=== PATIENT | female | born 1985 | race Hispanic/Latino ===

== ENCOUNTER → 2022-08-02 | Outpatient (CLI) | payer BC | END | disposition home or self-care (01) | LOC: RAH 10:39 | PROVIDERS: ATTEND Internal Medicine Gastroenterology | DX: R13.10 Dysphagia, unspecified (principal); R11.0 Nausea; R68.81 Early satiety | CPT/HCPCS: 78264; A9541 ==

== ENCOUNTER 2025-02-28 09:43 | Emergency (ER) | payer OTHER, BC ==
[~2025-02-28] VITALS: Ht 165.1 cm; Wt 145.1 kg
--- NOTE | 2025-02-28 09:50 | NUR ---
C COLAR REMOVED PER DR BRAUN
[2025-02-28] MEDS: HYDROcodone/APAP 5/325 1 TAB TABLET PO ONE (10:38)
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
--- NOTE | 2025-02-28 12:23 | HMCIMG ---
EXAM: CR left Shoulder, 2 View. CLINICAL HISTORY: Shoulder pain COMPARISON: None provided. FINDINGS: BONES: No acute fracture or aggressive appearing osseous lesion. JOINTS: No dislocation. Mild left acromioclavicular joint osteoarthritis. SOFT TISSUES: The soft tissues are unremarkable. IMPRESSION: 1. No acute findings. 2. Mild left acromioclavicular joint osteoarthritis. /[place]
--- NOTE | 2025-02-28 13:06 | HMCIMG ---
SOFT TISSUE NECK RADIOGRAPHS - 2 VIEWS INDICATION: Dysphagia COMPARISON: None FINDINGS: AP and lateral views No acute fracture or subluxation identified. No evidence for lingual or palatine tonsillar hypertrophy. No adenoidal prominence noted. No prevertebral soft tissue abnormality detected. No intrinsic osseous abnormality noted. IMPRESSION: No radiographic evidence for any acute osseous, joint, or soft tissue abnormality.
[2025-02-28] MEDS ORDERED: KETO10TA2 PO (13:08)
[2025-02-28 14:39] VITALS: BP 117/76; PULSE 89; RESP 17; TEMP 98.9; O2SAT 98
--- NOTE | 2025-02-28 14:51 | NUR ---
PT AAOX4 STABLE NO DISTRESS VITALS WNL NO C/O PAIN NOW, PT STATES SHE IS READY TO GO HOME, PT GIVEN ONE [facility] IN HAND FOR PHARMACY IV REMOVED CATHETER INTACT. PT DRIVEN HOME BY MOTHER.
== END 2025-02-28 14:52 | disposition home or self-care (01) ==
LOC: EDH 09:43
DX: M54.2 Cervicalgia (principal); R51.9 Headache, unspecified; V49.49XA Driver injured in collision with other motor vehicles in traffic accident, initial encounter; Y93.89 Activity, other specified; Y92.488 Other paved roadways as the place of occurrence of the external cause; Y99.8 Other external cause status
CPT/HCPCS: 99284; 96374; 70360; 73030; J1885

== ENCOUNTER 2025-05-23 11:35 | Emergency (ER) | payer BC, OTHER ==
[~2025-05-23] VITALS: Ht 162.6 cm; Wt 178.3 kg
[~2025-05-23 11:35] MED LIST: KETO10TA2 PO
--- NOTE | 2025-05-23 11:43 | ERN ---
ED Note History of Present Illness Stated Complaint: FLULIKE SYMPTOMS Chief Complaint: Flu Symptoms Time Seen by MD: 11:38 Dictation: PATIENT IS A 40-YEAR-OLD FEMALE COMING IN WITH FLU-LIKE SYMPTOMS TO INCLUDE FRONTAL HEADACHE DRY COUGH MILD SORE THROAT WITH BODY ACHES FOR THE LAST TWO DAYS. NO FEVER NO CHILLS NO NAUSEA VOMITING NO LOSS OF TASTE OR SMELL. SHE HAS NO PRIMARY CARE DOCTOR STATES SHE TOOK AN [id number] ALLERGY PILL THAT SHE IS NOT AWARE OF WHAT THE NAME WAS PRIOR TO ARRIVAL. Allergies: Coded Allergies: No Known Drug Allergies (Unverified Allergy, Unknown, 02/28/25) Home Meds Active Scripts Ketorolac Tromethamine (Ketorolac Tromethamine) 10 Mg Tablet, 1 TAB PO BID for pain for 5 Days, #10 TAB 0 Refills Prov:IZABELLA BRAUN MD 02/28/25 Past Medical History Past Medical History: No Pertinent History Surgical History: None History: Not Applicable LMP: Jan 21, 2025 RN Note Reviewed/Agreed w/PFSH: Yes Review of System Dictation CONSTITUTIONAL: NEGATIVE EXCEPT FOR HPI CHILLS/MALAISE HEAD/FACE: NEGATIVE EXCEPT FOR HPI EENT: NEGATIVE EXCEPT FOR HPI SINUS CONGESTION WITH FRONTAL HEADACHE SORE THROAT RESPIRATORY: NEGATIVE EXCEPT FOR HPI GASTROINTESTINAL/ABDOMINAL: NEGATIVE EXCEPT FOR HPI GENITOURINARY: NEGATIVE EXCEPT FOR HPI MUSCULOSKELETAL: NEGATIVE EXCEPT FOR HPI INTEGUMENTARY: NEGATIVE EXCEPT FOR HPI NEUROLOGICAL/PSYCH: NEGATIVE EXCEPT FOR HPI HEMATOLOGIC/LYMPHATIC: NEGATIVE EXCEPT FOR HPI ALL SYSTEMS NEGATIVE, EXCEPT NOTED ABOVE. 13 POINT REVIEW OF SYSTEMS ASSESSED AND ALL NEGATIVE EXCEPT FOR ABOVE. Initial Vital Sign VS Vital Signs Date Time Temp Pulse Resp B/P (MAP) Pulse Ox O2 Delivery O2 Flow Rate FiO2 05/23/25 11:36 101.1 109 20 158/92 99 Room Air Physical Exam Dictation VITAL SIGNS REVIEWED GENERAL APPEARANCE: ALERT, ORIENTED X 3, MILD ACUTE DISTRESS, WELL DEVELOPED, NOURISHED. MORBID OBESITY HEAD AND FACE: NON-TRAUMATIC. EYES: PERRL, PINK CONJUNCTIVAS, EYELID NO TRAUMA, ANTERIOR CHAMBER WITH ARCUS SENILIS. EARS: PINNAS INTACT AND NO SIGNS OF TRAUMA OR ERYTHEMA EAR CANALS CLEAR AND NO DISCHARGE TM NO ERYTHEMA NOSE: CLEAR DISCHARGE, NO BLEEDING. OROPHARYNX: MOUTH NORMAL, TONGUE PINK, PHARYNX CLEAR, MILD PHARYNGEAL ERYTHEMA, TONSILS NO EXUDATES, NO ABSCESSES NOTED, MUCOUS MEMBRANE MOIST UVULA MIDLINE, VOICE IS CLEAR NECK: SUPPLE, NON-TENDER, NO THYROMEGALY, NO MASSES, NO JVD, NO BRUITS BREAST:DEFERRED CHEST:NO TENDERNESS, NO CREPITUS, NO PARADOXICAL MOVEMENT, NO RETRACTIONS LUNGS:CLEAR, WELL-VENTILATED, SYMMETRIC, NO RALES, NO WHEEZING, NO RHONCHI, NO STRIDOR, GOOD BREATH SOUNDS BILATERALLY HEART: REGULAR RATE, REGULAR RHYTHM, NO MURMUR, NO GALLOPS VASCULAR: NO PERIPHERAL EDEMA, ABDOMEN: SOFT, POSITIVE BOWEL SOUNDS, NONDISTENDED, NO GUARDING, NONTENDER, NO REBOUND, NO MASSES NO HEPATOMEGALY, NO SPLENOMEGALY, NO STOLL'S SIGN, NO HERNIAS. RECTAL: DEFERRED GENITAL: DEFERRED NEUROLOGICAL: NORMAL SPEECH, MOTOR FUNCTION INTACT, SENSORY FUNCTION INTACT MUSCULOSKELETAL: NECK NONTENDER, FULL RANGE OF MOTION, BACK NONTENDER, FULL RANGE OF MOTION, EXTREMITIES: NONTENDER, FULL RANGE OF MOTION SKIN: COLOR PINK, DRY, NO TURGOR, NO RASH, NO LACERATIONS, NO ABRASIONS, NO CONTUSIONS. LYMPHATIC: DEFERRED Results (Laboratory/Radiology) Laboratory/Radiology Laboratory Tests Test 05/23/25 12:13 Influenza Type A Antigen Negative For Type A Influenza Type B Antigen Negative For Type B SARS-CoV-2 Antigen (Rapid) PRESUMPTIVE NEGATIVE Group A Streptococcus Rapid negative (NEGATIVE) Labs Reviewed?: Yes ED Course ED Course Orders Procedure Category Date Status Time Rapid (Group A Strep) LAB 05/23/25 Complete 11:40 Influenza Type A & B, LAB 05/23/25 Complete Rapid 11:40 Covid19 (Sars Antigen LAB 05/23/25 Complete Rapid) 11:40 Acetaminophen 500mg PHA 05/23/25 Complete Tab (Tylenol 500mg T 12:00 Ondansetron Odt 4mg PHA 05/23/25 Verified Tab (Zofran 4mg Odt) 13:30 Current Medications Medications (Trade) Dose Ordered Sig/Isabella Route PRN Reason Start Time Stop Time Status Last Admin Dose Admin Acetaminophen (TYLenol 500MG TAB) 1,000 mg ONCE ONCE PO 05/23/25 12:00 05/23/25 12:01 DC 05/23/25 12:37 Vital Signs Date Time Temp Pulse Resp B/P (MAP) Pulse Ox O2 Delivery O2 Flow Rate FiO2 05/23/25 11:36 101.1 109 20 158/92 99 Room Air 1315/SPOKE WITH PATIENT AT LENGTH REGARDING CLINICAL FINDINGS. SHE IS AWARE SHE HAS BEEN TREATED FOR ACUTE PHARYNGITIS UNSPECIFIED WITH FEVER ADDITIONALLY SHE SAID THAT SHE HAS BEEN HAVING SOME NAUSEA INCLUDING CURRENTLY AND I WE WILL GIVE HER ZOFRAN FOR THIS. SHE WAS CONCERNED SHE MAY HAVE A URINARY TRACT INFECTION I ADVISED HER THAT THE AUGMENTIN I WE WILL BE PRESCRIBING HAS BLADDER PENETRATION WITH TAKE CARE THIS TWO. FINALLY SHE WAS COUNSELED REGARDING HER BLOOD PRESSURE 158/92 AND SAYS SHE HAS NEVER BEEN TOLD SHE WAS HYPERTENSIVE. PATIENT WAS STRONGLY ADVISED TO VIRAL PRIMARY CARE DOCTOR TO FOLLOW HER FOR FOLLOW UP ON THIS AND SHE WAS GIVEN A LIST. PRIMARY PHYSICIANS Medical Decision Making MDM MEDICAL DECISION-MAKING BASED ON SWABS FOR FLU COVID AND STREP. ALL SWABS NEGATIVE PATIENT DISCHARGED HOME WITH DIAGNOSIS OF ACUTE PHARYNGITIS UNSPECIFIED SHE WILL BE TREATED EMPIRICALLY WITH THE AUGMENTIN 875 ADDITIONALLY SHE WAS STRONGLY ADVISED TO FOLLOW UP WITH THE DOCTOR IN THE NEXT SEVERAL DAYS FOR BLOOD PRESSURE RE-EVALUATION AND MANAGEMENT DX & DISP Disposition: Discharge Decision to Admit Time: 13:17 Departure Impression: Primary Impression: Acute pharyngitis, unspecified Additional Impressions: Fever, Obesity, Benign hypertension Condition: Stable Scripts Ondansetron (Ondansetron Odt) 4 Mg Tab.rapdis 4 MG PO Q6HPRN PRN for nausea, #16 TAB 0 Refills Prov: MICHAEL MCKENNA 05/23/25 Ibuprofen (Ibuprofen 800 mg Tab) 800 Mg Tab 800 MG PO Q8H PRN for fever or pain, #30 TAB 0 Refills Prov: MICHAEL MCKENNA 05/23/25 Amoxicillin/Potassium Clav (Amox Tr-K Clv 875-125 mg Tab) 875 Mg-125 Mg Tablet 1 EACH PO BID for 10 Days, #20 TAB 0 Refills Prov: MICHAEL MCKENNA 05/23/25 Additional Instructions: FOLLOW-UP WITH PRIMARY CARE PROVIDER IN 1 TO 2 DAYS. TAKE MEDICATIONS DIRECTED HERE IN THE EMERGENCY ROOM. OKAY TO CONTINUE HOME MEDICATIONS UNLESS OTHERWISE DISCUSSED DURING YOUR VISIT IN THE EMERGENCY ROOM TODAY. RETURN TO YOUR NEAREST EMERGENCY ROOM IF SYMPTOMS WORSEN OR IF THERE IS NO IMPROVEMENT. CALL 911 IF YOU NEED IMMEDIATE ASSISTANCE. TAKE TYLENOL OR MOTRIN [id number] NEEDED AND IF NO CONTRAINDICATIONS ARE PRESENT. INCREASE ORAL HYDRATION. A WOUND CULTURE OR URINE CULTURE WAS ORDERED HERE IN THE EMERGENCY ROOM DEPARTMENT PLEASE FOLLOW-UP WITH PRIMARY CARE PROVIDER AND ADVISE THEM TO GET REPEAT PORTS FROM OUR FACILITY. IF YOU HAD ANY NE WRAP/SPLINTS THAT WERE APPLIED HERE, PLEASE DO NOT REMOVE THEM UNTIL YOU SEE YOUR PRIMARY CARE OR SPECIALTY. TAKE ANTIBIOTICS DIRECTED UNTIL GONE. TAKE IBUPROFEN WITH FOOD NEEDED EVERY 6-8 HOURS FOR FEVER CHILLS. FOLLOW UP WITH ONE OF THE DOCTORS ON THE LIST PROVIDED YOU IN THE NEXT SEVERAL DAYS FOR MANAGEMENT AND RE-EVALUATION OF YOUR BLOOD PRESSURE. Referrals: KRUNAL LÓPEZ MD (PCP) Time of Disposition: 13:17 I have reviewed the case, and I agree with, Diagnosis and Plan MICHAEL MCKENNA [employer] EXAM[employer] May 23, 2025 11:43
[2025-05-23 12:53] LABS: RAPID GROUP A STREP negative (NEGATIVE)
[2025-05-23 13:04] LABS: COVID19 (SARS ANTIGEN RAPID) PRESUMPTIVE NEGATIVE (NEGATIVE); INFLUENZA TYPE A Negative For Type A (NEGATIVE); INFLUENZA TYPE B Negative For Type B (NEGATIVE)
[2025-05-23] MEDS ORDERED: IBUP-2077 PO (13:18)
[2025-05-23] MEDS ORDERED: AMOX1TAB16 PO (13:18)
[2025-05-23] MEDS ORDERED: ONDA-243 PO (13:18)
[2025-05-23 13:25] VITALS: BP 142/84; PULSE 92; RESP 18; TEMP 98.4; O2SAT 99
== END 2025-05-23 13:26 | disposition home or self-care (01) ==
LOC: EDH 11:35
DX: J02.9 Acute pharyngitis, unspecified (principal); R50.9 Fever, unspecified; E66.9 Obesity, unspecified; I10 Essential (primary) hypertension; Z20.822 Contact with and (suspected) exposure to COVID-19; Z79.899 Other long term (current) drug therapy
CPT/HCPCS: 87426; 87804; 87880; 99283